=== PATIENT | female | born 1990 | race African-American/Black ===

== ENCOUNTER 2024-08-26 22:01 | Emergency (ER) | payer MEDICAID ==
[~2024-08-26] VITALS: Ht 182.9 cm; Wt 82.0 kg
[2024-08-26 22:39] VITALS: O2SAT 100
[2024-08-26] MEDS: KETOROLAC 15MG/ML VIAL IM ONE (22:45)
[2024-08-27] MEDS: FLUORESCEIN SODIUM 1MG/STRIP EACHEYE ONE (00:36)
[2024-08-27] MEDS: TETRACAINE 0.5% OPHTH DROPS 4ML LEFTEYE ONE (00:36)
[2024-08-27] MEDS ORDERED: HYDR-4001 MT (01:47)
[2024-08-27] MEDS ORDERED: IBUP-2029 MT (01:47)
[2024-08-27 02:35] VITALS: BP 136/67; PULSE 78; RESP 18; TEMP 36.94740; O2SAT 100
== END 2024-08-27 02:35 | disposition home or self-care (01) ==
LOC: ER 22:01
DX: S02.31XA Fracture of orbital floor, right side, initial encounter for closed fracture (principal); Z88.0 Allergy status to penicillin; Y04.0XXA Assault by unarmed brawl or fight, initial encounter; Y93.89 Activity, other specified; Y92.89 Other specified places as the place of occurrence of the external cause; Y99.8 Other external cause status
CPT/HCPCS: 99285; 81025; 96372; 70450; 70486; J1885